=== PATIENT | male | born 1940 | race Two or more races ===

== ENCOUNTER 2019-05-07 11:19 | Inpatient (IN) | payer OTHER ==
[~2019-05-07] VITALS: Ht 170.2 cm; Wt 79.4 kg
--- NOTE | 2019-05-07 11:22 | NUR ---
PTE MASCULINO ALERTA Y ORIENTADO SE QUEJA DE DIFICULTAD RESPIRATORIA Y PADECE DE ENFERMEDADES DEL DEEDEE Y ACTUALMENTE PRESENTA PULMONIA, LOS SINTOMAS ESTAN PRESENTE DESDE HACE 7 KABA.
--- NOTE | 2019-05-07 12:40 | NUR ---
EVALUADO POR EL SE ORIENTA SOBRE TRATAMIENTO MEDICO Y LA UNIDAD POR MRSALICJA LE EXTRAE MUESTRAS DE [place] Y SE ENVIAN AL LABORATORIO Y CANALIZADO SE LE ADMINISTRA DRIP DE CARDIZEMM 125MG/1OOML NSS AT 3ML/HR. CONECTADO A MONITOR CARDIACO. ALERTA, ORIENTADO POR MAHOGANY. ACOMPANADO POR FAMILIAR. SE LE NOTIFICA A DE TERAPIA RESPIRATORIA PARA REALIZARLE ABG. SE MANTIENE EN OBSERVACION.
--- NOTE | 2019-05-07 14:39 | NUR ---
SE LE COMIENZA TERAPIA RESPIRATORIA POR MRS.MACARIO SE LE COLOCA CANULA DE OXIGENO A 3LITS. SE MANTIENE EN OBSERVACION.
--- NOTE | 2019-05-07 15:37 | NUR ---
SE RECIBE PACIENTE ALERTA Y ORIENTADO X3 EN DONITA CON BARANDAS ELEVADAS Y CONECTADO A TELEMTRIA Y CANULA NASAL A 3 LITROS. PACIENTE ESTA ACOMPANADO POR ESPOSA Y TIENE CARDIZEM 125MG/100ML BAJANDO A 3 ML/HR. PACIENTE TIENE PENDIENTE CONSULTA CON MEDICO INTERNISTA. PACIENTE SE MANTENDRA BAJO OBSERVACION PARA CAMBIOS EN HORTON CONDICION.
== END 2019-05-12 11:09 | disposition home or self-care (01) | DRG 202 ==
LOC: ER 11:19 → MEDJ 18:15 → SEC-K 18:15 → MEDJ 18:48
PROVIDERS: ADMIT Internal Medicine Cardiovascular Disease
PROC: 4A12X4Z Monitoring of Cardiac Electrical Activity, External Approach (ICD-10-PCS; principal; 2019-05-07)
PROC: 3E0F7GC Introduction of Other Therapeutic Substance into Respiratory Tract, Via Natural or Artificial Opening (ICD-10-PCS; 2019-05-07)
PROC: 4A033R1 Measurement of Arterial Saturation, Peripheral, Percutaneous Approach (ICD-10-PCS; 2019-05-07)
PROC: 8E0ZXY6 Isolation (ICD-10-PCS; 2019-05-07)
PROC: B246ZZZ Ultrasonography of Right and Left Heart (ICD-10-PCS; 2019-05-11)
DX: J40 Bronchitis, not specified as acute or chronic (principal); J18.1 Lobar pneumonia, unspecified organism; I48.0 Paroxysmal atrial fibrillation; I10 Essential (primary) hypertension; I08.3 Combined rheumatic disorders of mitral, aortic and tricuspid valves; G57.02 Lesion of sciatic nerve, left lower limb; G60.8 Other hereditary and idiopathic neuropathies; Z79.01 Long term (current) use of anticoagulants

== ENCOUNTER 2019-07-08 13:53 | Inpatient (IN) | payer OTHER ==
[~2019-07-08] VITALS: Ht 175.3 cm; Wt 82.6 kg
[2019-07-08] MEDS ORDERED: ELIQUIS2.5 MG (14:03)
[2019-07-08] MEDS ORDERED: TAMS0.4C (14:04)
[2019-07-08] MEDS ORDERED: TOPAMAX15 MG (14:04)
--- NOTE | 2019-07-08 14:06 | NUR ---
SE RECIBE PACIENTE ALERTA Y ORIENTADO X3 QUE REFIERE DIFICULTAD RESPIRATORIOA HACE 3 KABA. PACIENTE ES REFERIDO A STEVE DE EMERGENCIAS POR CHF POR SAM BARRY BAJO SERVICIO DE DR. REDMAN.
--- NOTE | 2019-07-08 15:40 | NUR ---
SE RECIBE PTE DEL TURNO ANTERIOR,PTE MASCULINO DE 78 YRS,PTE ALERTA X 3, EN DONITA CPU # 18 CON BARANDAS ELEVADAS POR HORTON SEGURIDAD,PTE CONECTADO A MONITOR CARDIACO CON OXIMETRIA DE PULSO CONTINUO,PTE CON H/L PATENTE Y SHAKIRA DE EDEMA Y/O ERITEMA EN AREA DE VENOPUNCION,S/V TOMADOS Y PASADOS A GRAFICAS,SE OBSERVARAN POR CAMBIOS EN HORTON CONDICION DE SETH.
--- NOTE | 2019-07-08 16:59 | NUR ---
DR JHONNY MONTGOMERYA VISITA Y [facility] Y [facility].
== END 2019-07-14 18:28 | disposition home or self-care (01) | DRG 177 ==
LOC: ER 13:53 → SURG 19:04
PROVIDERS: ADMIT Internal Medicine Cardiovascular Disease
PROC: BB24ZZZ Computerized Tomography (CT Scan) of Bilateral Lungs (ICD-10-PCS; 2019-07-08)
PROC: 3E0F7GC Introduction of Other Therapeutic Substance into Respiratory Tract, Via Natural or Artificial Opening (ICD-10-PCS; 2019-07-08)
PROC: 4A033R1 Measurement of Arterial Saturation, Peripheral, Percutaneous Approach (ICD-10-PCS; 2019-07-08)
PROC: 8E0ZXY6 Isolation (ICD-10-PCS; 2019-07-08)
PROC: 4A12X4Z Monitoring of Cardiac Electrical Activity, External Approach (ICD-10-PCS; 2019-07-09)
PROC: 0B9 Respiratory System, Drainage (ICD-10-PCS; principal; 2019-07-10)
PROC: 0W9930Z Drainage of Right Pleural Cavity with Drainage Device, Percutaneous Approach (ICD-10-PCS; 2019-07-10)
DX: J69.0 Pneumonitis due to inhalation of food and vomit (principal); I50.23 Acute on chronic systolic (congestive) heart failure; J90 Pleural effusion, not elsewhere classified; T17.898A Other foreign object in other parts of respiratory tract causing other injury, initial encounter; D58.8 Other specified hereditary hemolytic anemias; R04.2 Hemoptysis; D59.1 Other autoimmune hemolytic anemias; G20 Parkinson's disease; I11.0 Hypertensive heart disease with heart failure; I48.0 Paroxysmal atrial fibrillation; Z79.01 Long term (current) use of anticoagulants

== ENCOUNTER 2022-05-30 08:57 | Outpatient (CLI) | payer OTHER ==
[~2022-05-30 08:57] MED LIST: ELIQUIS2.5 MG; TAMS0.4C; TOPAMAX15 MG
== END 2022-05-30 09:00 | disposition home or self-care (01) ==
LOC: NUCLEAR 08:57
PROVIDERS: ATTEND Obstetrics & Gynecology
DX: I82.423 Acute embolism and thrombosis of iliac vein, bilateral (principal); Z88.0 Allergy status to penicillin